=== PATIENT | male | born 1935 | race Caucasian/White ===

== ENCOUNTER 2018-12-04 23:10 | Inpatient (IN) ==
--- NOTE | 2018-12-04 23:14 | Emergency Department Note ---
Disposition Clinical Impression: Weakness, Frequent falls Disposition: Admitted As Inpatient Condition: Fair Time of Disposition: 23:28 ( will admit) Fall HPI - General Chief Complaint: ED Fall Stated Complaint: FALL Time Seen by Provider: 12/04/18 23:14 Source: EMS Mode of arrival: EMS Limitations: no limitations Nursing Notes Reviewed: Yes Vital Signs Reviewed: Yes - History of Present Illness HPI Narrative: Is 83-year-old male who presents to the emergency department via EMS after sustaining a fall at home. According to the EMS crew patient has been laying down on the floor most of the morning. He reports that he is been having complaints of generalized weakness and no chest pain no shortness of breath. Patient's apparently had been outside trying to track down cars, and is not able to take care of the patient. Patient has history of congestive heart failure, but denies chest pain or shortness of breath. 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 Constitutional: Reports: other (Positive abrasion to the left temporal area) Musculoskeletal: Reports: joint swelling, arthralgia, other (Abrasion/skin tear noted to the right elbow.) Physical Exam - General Limitations: no limitations General appearance: alert, in no apparent distress - Head Head exam: other - Expanded Head Exam Head exam physicial: Present: abrasion 1 - abrasion noted - Eye Eye exam: Present: normal appearance, PERRL, EOMI - Expanded Eye Exam Pupils: Left: reactive - ENT ENT exam: normal exam, normal oropharynx, mucous membranes moist - Expanded ENT Exam External ear exam: Present: normal external inspection Mouth exam: Present: normal external inspection Teeth exam: Present: normal inspection Throat exam: Present: normal inspection - Neck Neck exam: Present: normal inspection, full ROM, trachea midline - Chest Chest inspection: Present: normal inspection, symmetric chest wall rise - Respiratory Respiratory exam: Present: normal lung sounds bilaterally - Cardiovascular Cardiovascular exam: Present: regular rate, normal rhythm, normal heart sounds - Abdominal Exam Abdominal exam: Present: soft, Non-Tender. Absent: tenderness, distention, guar ding, rebound, rigidity - Extremities Exam Extremities exam: Present: normal inspection, full ROM. Absent: tenderness, pedal edema - Expanded Upper Extremity Exam Shoulder exam: Present: normal inspection, full ROM Arm exam: Present: normal inspection, full ROM Elbow exam: Present: normal inspection, full ROM Forearm/Wrist exam: Present: normal inspection, full ROM Hand exam: Present: normal inspection, full ROM Vascular exam: Normal: capillary refill, radial pulse - Expanded Lower Extremity Exam Hip/Pelvis exam: Present: normal inspection, full ROM Upper leg exam: Present: normal inspection, full ROM Knee exam: Present: normal inspection, full ROM Lower leg exam: Present: normal inspection, full ROM Ankle exam: Present: normal inspection, full ROM Foot/toe exam: Present: normal inspection, full ROM Neurovascular/Tendon exam: Absent: motor deficit, sensory deficit, tendon deficit - Back Exam Back exam: Present: normal inspection, full ROM. Absent: tenderness - Neurological Exam Neurological exam: Present: alert, oriented X3 - Expanded Neurological Exam Patient oriented to: Present: person, place, time Coma Scale Eye Opening: Spontaneous Coma Scale Motor Response: Obeys Commands Coma Scale Verbal Response: Oriented Coma Scale Total: 15 - Psychiatric Psychiatric exam: Present: normal affect, normal mood - Skin Skin exam: Present: warm, dry, intact, normal color Course Vital Signs Temperature 99.4 F 12/04/18 23:12 Pulse Rate 118 12/04/18 23:12 Respiratory Rate 20 12/04/18 23:12 Blood Pressure 151/98 12/04/18 23:12 O2 Sat by Pulse Oximetry 92 12/04/18 23:12 Temperature 99.4 F 12/04/18 23:12 Pulse Rate 113 12/05/18 02:21 Respiratory Rate 17 12/05/18 02:21 Blood Pressure 145/96 12/05/18 02:21 O2 Sat by Pulse Oximetry 91 12/05/18 02:21 Oxygen Delivery Oxygen Delivery Room Air Fall - [facility] Narrative Medical decision making narrative: [facility] . i spoke with and he accepted the patient . I have the nurse call back Dr. Henderson after the patient's troponin came back elevated 0.07, he wants to repeat another troponin in 2 hours which we will do. On a repeat CT of the head was ordered and 3 hours. We talked with the [facility] and patient was okayed to be staying here. - Differential Diagnosis Likely: traumatic injury - Lab Data Lab results reviewed: Yes I reviewed the patient's lab results. Result diagrams: 12/04/18 23:43 12/04/18 23:43 Lab Results 12/04/18 12/04/18 12/04/18 Range/Units 23:43 23:43 23:43 WBC 4.5 (4.3-11.1) K/mcL RBC 4.63 (4.19-5.50) M/mcL Hgb 13.8 (12.9-16.9) g/dL Hct 41.1 (37.5-50.1) % MCV 88.8 (83.0-100.0) fL MCH 29.8 (28.0-33.3) pg MCHC 33.6 (31.6-35.5) g/dL RDW 15.1 H (11.5-14.5) % Plt Count 135 L (140-400) K/mcL MPV 9.6 (9.4-12.4) fL Immature Gran % 0.2 (0-4) % Seg Neutrophils % 79.0 % Lymphocytes % 7.4 % Monocytes % 13.0 % Eosinophils % 0.0 % Basophils % 0.4 % Neutrophils # 3.5 (1.6-8.9) K/mcL Lymphocytes # 0.3 L (0.6-4.6) K/mcL Monocytes # 0.6 (0.0-1.3) K/mcL Eosinophils # 0.0 (0.0-0.6) K/mcL Basophils # 0.0 (0.0-0.2) K/mcL Sodium 135 L (136-145) mEq/L Potassium 4.2 (3.5-5.1) mEq/L Chloride 99 (98-107) mEq/L Carbon Dioxide 26 (23-29) mEq/L BUN 24 H (8-23) mg/dL Creatinine 1.15 (0.70-1.30) mg/dL Est GFR ( Amer) > 60 (> 60) Est GFR (Non-Af Amer) > 60 (> 60) BUN/Creatinine Ratio 21 (6-26) Glucose 188 H (70-105) mg/dL Calculated Osmolality 289 (280-300) Calcium 9.7 (8.6-10.3) mg/dL Total Bilirubin 0.4 (0.3-1.0) mg/dL AST 44 H (13-39) Units/L ALT 28 (7-52) Units/L Alkaline Phosphatase 112 H (34-104) Units/L Creatine Kinase (30-223) Units/L Troponin I 0.07 H* (< 0.04) ng/mL B-Natriuretic Peptide 220 H (Less than 100) pg/mL Serum Total Protein 7.6 (6.4-8.9) g/dL Albumin 4.1 (3.5-5.7) g/dL Globulin 3.5 (2.4-3.5) g/dL Albumin/Globulin Ratio 1.2 (1.1-2.2) Urine Color (Yellow) Urine Clarity (Clear) Urine pH (5.0-8.0) pH Units Ur Specific [place] (1.010-1.025) Urine Protein (Neg-Trace) mg/dL Urine Glucose (UA) (Normal) mg/dL Urine Ketones (Negative) mg/dL Urine Blood (Negative) Urine Nitrite (Negative) Urine Bilirubin (Negative) Urine Urobilinogen (Normal) mg/dL Ur Leukocyte Esterase (Negative) Urine Microscopic RBC (0-3) per hpf Urine Microscopic WBC (0-3) per hpf Ur Squamous Epith Cells (None-Few) per lpf Urine Bacteria (None-Few) per hpf Hyaline Casts (None-Few) per lpf Granular Casts (None Seen) per lpf WBC Casts (None Seen) per lpf Urine Mucus (Few) 12/04/18 12/05/18 12/05/18 Range/Units 23:43 00:19 01:46 WBC (4.3-11.1) K/mcL RBC (4.19-5.50) M/mcL Hgb (12.9-16.9) g/dL Hct (37.5-50.1) % MCV (83.0-100.0) fL MCH (28.0-33.3) pg MCHC (31.6-35.5) g/dL RDW (11.5-14.5) % Plt Count (140-400) K/mcL MPV (9.4-12.4) fL Immature Gran % (0-4) % Seg Neutrophils % % Lymphocytes % % Monocytes % % Eosinophils % % Basophils % % Neutrophils # (1.6-8.9) K/mcL Lymphocytes # (0.6-4.6) K/mcL Monocytes # (0.0-1.3) K/mcL Eosinophils # (0.0-0.6) K/mcL Basophils # (0.0-0.2) K/mcL Sodium (136-145) mEq/L Potassium (3.5-5.1) mEq/L Chloride (98-107) mEq/L Carbon Dioxide (23-29) mEq/L BUN (8-23) mg/dL Creatinine (0.70-1.30) mg/dL Est GFR ( Amer) (> 60) Est GFR (Non-Af Amer) (> 60) BUN/Creatinine Ratio (6-26) Glucose (70-105) mg/dL Calculated Osmolality (280-300) Calcium (8.6-10.3) mg/dL Total Bilirubin (0.3-1.0) mg/dL AST (13-39) Units/L ALT (7-52) Units/L Alkaline Phosphatase (34-104) Units/L Creatine Kinase 1687 H (30-223) Units/L Troponin I 0.09 H* (< 0.04) ng/mL B-Natriuretic Peptide (Less than 100) pg/mL Serum Total Protein (6.4-8.9) g/dL Albumin (3.5-5.7) g/dL Globulin (2.4-3.5) g/dL Albumin/Globulin Ratio (1.1-2.2) Urine Color Yellow (Yellow) Urine Clarity Slightly Cloudy A (Clear) Urine pH 6.0 (5.0-8.0) pH Units Ur Specific [place] 1.025 (1.010-1.025) Urine Protein >=300 H (Neg-Trace) mg/dL Urine Glucose (UA) Normal (Normal) mg/dL Urine Ketones Negative (Negative) mg/dL Urine Blood Large H (Negative) Urine Nitrite Negative (Negative) Urine Bilirubin Negative (Negative) Urine Urobilinogen Normal (Normal) mg/dL Ur Leukocyte Esterase Negative (Negative) Urine Microscopic RBC 5-15 H (0-3) per hpf Urine Microscopic WBC 0-3 (0-3) per hpf Ur Squamous Epith Cells Few (None-Few) per lpf Urine Bacteria Moderate H (None-Few) per hpf Hyaline Casts Few (None-Few) per lpf Granular Casts Moderate H (None Seen) per lpf WBC Casts Few H (None Seen) per lpf Urine Mucus Moderate H (Few) - Radiology Data Radiology results reviewed: Yes I reviewed the patient's radiology results. CT of head without contrast per radiology reading shows a possible meningioma versus calcification versus a small punctate bleed. This is not vertigo patient has struck his head. We will repeat his CT scan of the head and approximately 3 hours if there are no changes I think patient is safe to be admitted here. X-ray of left elbow, and chest showed no acute process. - EKG Data EKG attestation: Yes I reviewed and interpreted this EKG. EKG results narrative: EKG shows a right bundle branch block pattern, and sinus tach rate of 118 EKG shows normal: sinus rhythm Rate: tachycardia Rhythm: NSR, other (rbbb) [place]/QRS: normal
[2018-12-04] MEDS ORDERED: 0.9 % Sodium Chloride 500 ML IVC ONE (23:25)
[2018-12-04] MEDS ORDERED: Naloxone 0.4 MG/ML INJ IVP PRN (23:32)
[2018-12-04 23:52] LABS: Basophils % 0.4 %; Hematocrit 41.1 % (37.5-50.1); Hemoglobin 13.8 g/dL (12.9-16.9); Immature Granulocytes % 0.2 % (0-4); Lymphocytes # 0.3 K/mcL (0.6-4.6); Lymphocytes % 7.4 %; Mean Corpuscular HGB Conc 33.6 g/dL (31.6-35.5); Mean Corpuscular Hemoglobin 29.8 pg (28.0-33.3); Mean Corpuscular Volume 88.8 fL (83.0-100.0); Mean Platelet Volume 9.6 fL (9.4-12.4); Monocytes # 0.6 K/mcL (0.0-1.3); Neutrophils # 3.5 K/mcL (1.6-8.9); Platelet Count 135 K/mcL (140-400); Red Blood Count 4.63 M/mcL (4.19-5.50); Red Cell Distribution Width 15.1 % (11.5-14.5); White Blood Count 4.5 K/mcL (4.3-11.1)
[2018-12-05 00:21] LABS: Alanine Aminotransferase 28 Units/L (7-52); Albumin 4.1 g/dL (3.5-5.7); Albumin/Globulin Ratio 1.2 (1.1-2.2); Alkaline Phosphatase 112 Units/L (34-104); Aspartate Amino Transferase 44 Units/L (13-39); BUN/Creatinine Ratio 21 (6-26); Bilirubin,Total 0.4 mg/dL (0.3-1.0); Blood Urea Nitrogen 24 mg/dL (8-23); Calcium 9.7 mg/dL (8.6-10.3); Carbon Dioxide 26 mEq/L (23-29); Chloride 99 mEq/L (98-107); Globulin 3.5 g/dL (2.4-3.5); Glucose 188 mg/dL (70-105); Osmolality,Calculated 289 (280-300); Potassium 4.2 mEq/L (3.5-5.1); Sodium 135 mEq/L (136-145); Total Protein 7.6 g/dL (6.4-8.9); Troponin I 0.07 ng/mL (< 0.04); eGFR For African Americans > 60 (> 60); eGFR For Non-African Americans > 60 (> 60)
[2018-12-05 00:25] LABS: Bilirubin,Urine Negative (Negative); Blood,Urine Large (Negative); Clarity,Urine Slightly Cloudy (Clear); Color,Urine Yellow (Yellow); Glucose,Urine (UA) Normal (Normal); Ketones,Urine Negative (Negative); Leukocyte Esterase,Urine Negative (Negative); Nitrite,Urine Negative (Negative); Protein,Urine >=300 mg/dL (Neg-Trace); Specific Gravity,Urine 1.025 (1.010-1.025); Urobilinogen,Urine Normal (Normal)
[2018-12-05 00:34] LABS: Hyaline Casts,Urine Few per lpf (None-Few)
[2018-12-05 00:36] LABS: Bacteria,Urine Moderate per hpf (None-Few); Granular Casts,Urine Moderate per lpf (None Seen); Mucus,Urine Moderate (Few)
[2018-12-05 00:37] LABS: WBC,Urine 0-3 per hpf (0-3); White Blood Cell Casts,Urine Few per lpf (None Seen)
[2018-12-05 00:39] LABS: Squamous Epithelial Cell,Urine Few per lpf (None-Few)
[2018-12-05] MEDS ORDERED: Naloxone 0.4 MG/ML INJ IVP PRN (02:29)
[2018-12-05] MEDS ORDERED: *HR* Metoprolol 5 MG/5 ML VIAL IVP ONE (08:05)
--- NOTE | 2018-12-05 12:08 | Internal Med History&Physical ---
Date of Encounter: 12/05/18 Time of Encounter: 11:30 Assessment and Plan (1) Frequent falls Current visit: Yes Status: Acute PT and OT evaluations will be done. Orthostatic vital signs will be checked. (2) Atrial fibrillation Current visit: Yes Status: Chronic Continue Coumadin and monitor PT/INR. Qualifiers: Atrial fibrillation type: paroxysmal Qualified Code(s): I48.0 - Paroxysmal atrial fibrillation (3) Hypertension Current visit: Yes Status: Chronic He reports taking metoprolol and lisinopril at home. Metoprolol will be continued and blood pressure monitored. Orthostatic vital signs will be checked. Qualifiers: Hypertension type: essential hypertension Qualified Code(s): I10 - Essenti al (primary) hypertension (4) Heart failure Current visit: Yes Status: Chronic Continue metoprolol and monitor. Qualifiers: Heart failure type: unspecified Heart failure chronicity: unspecified Qualified Code(s): I50.9 - Heart failure, unspecified (5) Gout Current visit: Yes Status: Chronic Uric acid level will be checked in a.m. Continue allopurinol. Qualifiers: Gout site: unspecified site Gout etiology: unspecified cause Chronicity: unspecified Qualified Code(s): M10.9 - Gout, unspecified (6) Seizures Current visit: Yes Status: Acute Type unknown. Phenobarbital level will be checked. (7) DM type 2 (diabetes mellitus, type 2) Current visit: Yes Status: Chronic Hemoglobin A1c will be checked. Qualifiers: Diabetes mellitus skilled nursing insulin use: without keno terminal operator use Diabetes mellitus complication status: without complication Qualified Code(s): E11.9 - Type 2 diabetes mellitus without complications Internal Medicine - H&P: HPI Chief complaint: Fall and weakness Admitted From: Emergency Dept Plans for Post Hospital Care: Home History of present illness: Mr. Treadwell is a 83 year old male who came to emergency room after he experienced a fall at home after arising from a chair. He denies loss of consciousness. He was unable to get off the floor by himself or with the minimal help his could offer. After several hours of lying on the floor EMS was called and he was brought to emergency room. He was evaluated and admitted to [facility] for ongoing care needs. He states he has fallen twice in the past 2 months. He typically uses a walker for ambulation. He denies syncope or near-syncope. Neurologic history is pertinent for seizures history but he states he has not had a seizure in several years and uses phenobarbital for AED. Past Med Surg Social Fam HX - Past Medical History Medical history: CHF, diabetes Psychiatric history: no psych history - Social History Smoking Status: Former smoker Smokeless Tobacco Status: No Alcohol use: rarely Drug use: none Internal Medicine - H&P: Meds Allergy/AdvReac Type Severity Reaction Status Date / Time shrimp Allergy Nausea Verified 12/05/18 01:04 All Systems PM: A 10-system review of systems was performed and is negative for pertinent findings except as documented above in the HPI. Review of systems: Gen.: He states his weight has been stable for several months Cardiovascular: Reports history of hypertension CHF and atrial fibrillation. He denies PR DVT or pulmonary embolus. Respiratory: He smoked from approximately age [age] up to 3 packs per day. He denies known chronic lung disease and does not use home oxygen. GI: He denies disorders of his liver gallbladder or exocrine pancreas : He denies hematuria dysuria or kidney stones Neurologic: As per history of present illness Endocrine: He reports he was diagnosed with DM 2 approximately 2012. He has hyperlipidemia but denies thyroid disease Hematology/oncology: He denies blood disorders cancers or anemia Psychiatric: He denies anxiety depression or other mental health issues [place] skeletal: He has DJD and history of gout. He denies other bone joint or muscle disorders. - Constitutional Vitals: Temp Pulse Resp BP Pulse Ox 98.8 F 120 20 141/94 93 12/05/18 11:07 12/05/18 11:07 12/05/18 11:07 12/05/18 11:07 12/05/18 11:07 Exam: Gen.: He is a well-developed well-nourished male lying in bed who appears slightly groggy but in no acute distress. He arouses and answers questions with reasonable answers. HEENT: Head is atraumatic and normal cephalic. Eyes: EOMI. There is no scleral icterus. Mouth: Mucosa is moist. Neck: Supple and nontender. There is no thyromegaly or adenopathy noted. Heart: Regular without murmurs gallops or ectopics. Rate is approximately 120/m Lungs: No wheezes or crackles are heard. He has diminished breath sounds diffusely. Abdomen: Soft and nontender. No masses or guarding are noted. Extremities: He has petechiae and chronic venous stasis pigmentation changes of his lower legs. There is trace pitting edema bilaterally. Dorsalis pedis and posterior tibial pulses are trace palpable. Neurologic: Mental status: He is talkative and a good historian. Cranial nerves: Smile is symmetric. Forehead wrinkles bilaterally. Tongue protrudes midline. EOMI. Motor: There is no pronator drift. Cerebellar: Finger to nose is intact bilaterally. Skin: Warm and dry Internal Med - H&P Results - Labs CBC & Chem 7: 12/04/18 23:43 12/04/18 23:43 Labs: Short CBC 12/04/18 Range/Units 23:43 WBC 4.5 (4.3-11.1) K/mcL Hgb 13.8 (12.9-16.9) g/dL Hct 41.1 (37.5-50.1) % Plt Count 135 L (140-400) K/mcL Neutrophils # 3.5 (1.6-8.9) K/mcL BMP 12/04/18 23:43 Sodium 135 L Potassium 4.2 Chloride 99 Carbon Dioxide 26 BUN 24 H Creatinine 1.15 Glucose 188 H Calcium 9.7 Cardiac Enzymes 12/04/18 12/05/18 Range/Units 23:43 01:46 Troponin I 0.07 H* 0.09 H* (< 0.04) ng/mL Liver Function 12/04/18 Range/Units 23:43 Total Bilirubin 0.4 (0.3-1.0) mg/dL AST 44 H (13-39) Units/L ALT 28 (7-52) Units/L Alkaline Phosphatase 112 H (34-104) Units/L Albumin 4.1 (3.5-5.7) g/dL Urine 12/05/18 Range/Units 00:19 Urine Color Yellow (Yellow) Urine Clarity Slightly Cloudy A (Clear) Urine pH 6.0 (5.0-8.0) pH Units Ur Specific [place] 1.025 (1.010-1.025) Urine Protein >=300 H (Neg-Trace) mg/dL Urine Glucose (UA) Normal (Normal) mg/dL - Impressions ITS Impressions Chest X-Ray 12/04/18 23:15 IMPRESSION: Asymmetric elevation of the left hemidiaphragm. Bibasilar atelectasis. Otherwise unremarkable chest. D/ / Benjamin Huizar MD / Benjamin Huizar MD Interpreting Provider: Benjamin Huizar MD Elbow X-Ray 12/04/18 23:15 IMPRESSION: No acute osseous or soft tissue abnormality. D/ / Missael Naranjo / Missael Naranjo Interpreting Provider: Missael Naranjo Head CT 12/04/18 23:15 IMPRESSION: 1. The tiny density along the right side of the falx could represent a punctate hemorrhage though a calcification or possibly a tiny meningioma are felt to be more likely. If the patient has prior outside studies comparison would be beneficial. 2. Small vessel chronic ischemic changes without definite evidence for acute ischemia. Critical results were called by Dr. Jamie Jones MD to Sandra Ramírez on 12/04/2018 at 23:57. D/ / Jamie Jones MD / Jamie Jones MD Interpreting Provider: Jamie Jones MD Head CT 12/05/18 03:05 IMPRESSION: No appreciable change in the small high attenuation along the right side of the falx. D/ / Jamie Jones MD / Jamie Jones MD Interpreting Provider: Jamie Jones MD
[2018-12-05] MEDS: 0.45 % Sodium Chloride w/KCl 20 MEQ/1,000 ML MLS IVC SCH ×2 (12:34→22:14)
[2018-12-06 04:42] LABS: Hematocrit 41.1 % (37.5-50.1); Mean Corpuscular HGB Conc 34.1 g/dL (31.6-35.5); Mean Corpuscular Volume 88.2 fL (83.0-100.0); Mean Platelet Volume 9.9 fL (9.4-12.4); Red Blood Count 4.66 M/mcL (4.19-5.50); Red Cell Distribution Width 15.1 % (11.5-14.5); White Blood Count 3.7 K/mcL (4.3-11.1)
[2018-12-06 04:47] LABS: Platelet Count 96 K/mcL (140-400)
[2018-12-06 04:52] LABS: INR 1.6; Prothrombin Time 18.2 Seconds (9.4-12.1)
[2018-12-06 05:03] LABS: BUN/Creatinine Ratio 20 (6-26); Blood Urea Nitrogen 19 mg/dL (8-23); Calcium 8.9 mg/dL (8.6-10.3); Carbon Dioxide 24 mEq/L (23-29); Chloride 101 mEq/L (98-107); Glucose 137 mg/dL (70-105); Osmolality,Calculated 280 (280-300); Sodium 133 mEq/L (136-145); Uric Acid 6.1 mg/dL (2.3-7.6); eGFR For African Americans > 60 (> 60); eGFR For Non-African Americans > 60 (> 60)
[2018-12-06 05:24] LABS: Eosinophils # 0.1 K/mcL (0.0-0.6); Lymphocytes # 0.9 K/mcL (0.6-4.6); Monocytes # 0.4 K/mcL (0.0-1.3); Neutrophils # 2.3 K/mcL (1.6-8.9)
[2018-12-06 05:25] LABS: Platelet Estimate Decreased (Normal); Reactive Lymphocytes Present (Not Present)
[2018-12-06] MEDS: 0.45 % Sodium Chloride w/KCl 20 MEQ/1,000 ML MLS IVC SCH (07:36)
[2018-12-06 08:58] LABS: Estimated Average Glucose 174 mg/dl
[2018-12-06] MEDS: Lisinopril 20 MG TABLET PO SCH (11:28)
--- NOTE | 2018-12-06 18:46 | Internal Med Progress Note ---
Date of Encounter: 12/06/18 Time of Encounter: 10:00 - Assessment and plan (1) Frequent falls Current Visit: Yes Status: Acute Assessment and plan: December 06. Continue PT and OT intervention. (2) Atrial fibrillation Current Visit: Yes Status: Chronic Assessment and plan: December 06. Continue Coumadin, metoprolol, and monitor PT/INR. Qualifiers: Atrial fibrillation type: paroxysmal Qualified Code(s): I48.0 - Paroxysmal atrial fibrillation (3) Hypertension Current Visit: Yes Status: Chronic Assessment and plan: December 06. Continue metoprolol and lisinopril. Qualifiers: Hypertension type: essential hypertension Qualified Code(s): I10 - Essential (primary) hypertension (4) Heart failure Current Visit: Yes Status: Chronic Assessment and plan: December 06. Continue metoprolol and lisinopril. Qualifiers: Heart failure type: unspecified Heart failure chronicity: unspecified Qualified Code(s): I50.9 - Heart failure, unspecified (5) Gout Current Visit: Yes Status: Chronic Assessment and plan: December 06. Uric acid level acceptable at 6.1. Continue allopurinol. Qualifiers: Gout site: unspecified site Gout etiology: unspecified cause Chronicity: unspecified Qualified Code(s): M10.9 - Gout, unspecified (6) Seizures Current Visit: Yes Status: Acute Assessment and plan: December 06. Type unknown. Phenobarbital level undetectable. Observe without further Rx. (7) DM type 2 (diabetes mellitus, type 2) Current Visit: Yes Status: Chronic Assessment and plan: December 06. Hemoglobin A1c slightly elevated at 7.7%. Qualifiers: Diabetes mellitus usp insulin use: without rodent exterminator use Diabetes mellitus complication status: without complication Qualified Code(s): E11.9 - Type 2 diabetes mellitus without complications - Subjective Interval history: December 06. He has no new complaints. He feels less dyspneic overall. - Constitutional Vitals: Temp Pulse Resp BP Pulse Ox 100.6 F H 100 20 145/79 95 12/06/18 14:00 12/06/18 14:00 12/06/18 14:00 12/06/18 14:12/06/18 14:00 Exam: He is sitting in a chair at bedside resting And appears in no acute distress. He is more awake and talkative than yesterday. Heart is regular without murmurs gallops or ectopics. Lungs are clear anteriorly. Extremities show no significant edema. I reviewed his medications and lab results. Internal Medicine: Result - Labs CBC & Chem 7: 12/06/18 04:15 12/06/18 04:15 Labs: Short CBC 12/06/18 Range/Units 04:15 WBC 3.7 L (4.3-11.1) K/mcL Hgb 14.0 (12.9-16.9) g/dL Hct 41.1 (37.5-50.1) % Plt Count 96 L (140-400) K/mcL Neutrophils # 2.3 (1.6-8.9) K/mcL BMP 12/06/18 04:15 Sodium 133 L Potassium 4.0 Chloride 101 Carbon Dioxide 24 BUN 19 Creatinine 0.97 Glucose 137 H Calcium 8.9 Cardiac Enzymes 12/06/18 Range/Units 15:21 Troponin I 0.11 H* (< 0.04) ng/mL - ABG Interpretation ABG results: PT/INR, D-dimer PT 18.2 Seconds (9.4-12.1) H 12/06/18 04:15 Consult Discharge Plan - Plan [facility] Care Provider[facility] - 1 week
[2018-12-06] MEDS: Bumetanide 1 MG TABLET PO SCH (19:29)
--- NOTE | 2018-12-06 21:08 | Electrocardiograph Report ---
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
[2018-12-07 05:57] LABS: Basophils % 0.8 %; Eosinophils # 0.1 K/mcL (0.0-0.6); Eosinophils % 1.8 %; Hematocrit 41.1 % (37.5-50.1); Hemoglobin 13.8 g/dL (12.9-16.9); Immature Granulocytes % 0.3 % (0-4); Lymphocytes # 0.9 K/mcL (0.6-4.6); Lymphocytes % 22.2 %; Mean Corpuscular HGB Conc 33.6 g/dL (31.6-35.5); Mean Corpuscular Hemoglobin 29.8 pg (28.0-33.3); Mean Corpuscular Volume 88.8 fL (83.0-100.0); Mean Platelet Volume 10.7 fL (9.4-12.4); Monocytes # 0.8 K/mcL (0.0-1.3); Monocytes % 19.8 %; Red Blood Count 4.63 M/mcL (4.19-5.50); Segmented Neutrophils % 55.1 %; White Blood Count 3.9 K/mcL (4.3-11.1)
[2018-12-07 06:17] LABS: Neutrophils # 2.2 K/mcL (1.6-8.9); Platelet Count 92 K/mcL (140-400)
[2018-12-07 06:21] LABS: BUN/Creatinine Ratio 22 (6-26); Blood Urea Nitrogen 21 mg/dL (8-23); Calcium 8.8 mg/dL (8.6-10.3); Carbon Dioxide 26 mEq/L (23-29); Chloride 101 mEq/L (98-107); Glucose 153 mg/dL (70-105); Osmolality,Calculated 288 (280-300); Potassium 3.8 mEq/L (3.5-5.1); Sodium 136 mEq/L (136-145); eGFR For African Americans > 60 (> 60); eGFR For Non-African Americans > 60 (> 60)
[2018-12-07 07:47] LABS: Platelet Estimate Decreased (Normal)
[2018-12-07] MEDS: Lisinopril 20 MG TABLET PO SCH (07:56)
[2018-12-07] MEDS: Bumetanide 1 MG TABLET PO SCH (07:56)
--- NOTE | 2018-12-07 14:30 | Internal Med Progress Note ---
Date of Encounter: 12/07/18 Time of Encounter: 14:22 - Assessment and plan (1) Frequent falls Current Visit: Yes Status: Acute Assessment and plan: December 06. Continue PT and OT intervention. December 07. Continue therapy intervention. Anticipate discharge to swing bed after acute-care stay completed. (2) Atrial fibrillation Current Visit: Yes Status: Chronic Assessment and plan: December 06. Continue Coumadin, metoprolol, and monitor PT/INR. December 07. INR subtherapeutic at 1.6 yesterday. Start Coumadin 5 mg daily and monitor PT/INR. Qualifiers: Atrial fibrillation type: paroxysmal Qualified Code(s): I48.0 - Paroxysmal atrial fibrillation (3) Hypertension Current Visit: Yes Status: Chronic Assessment and plan: December 06. Continue metoprolol and lisinopril. December 07. Blood pressure and heart rate suboptimally controlled. Continue metoprolol. Increase lisinopril. Qualifiers: Hypertension type: essential hypertension Qualified Code(s): I10 - Essential (primary) hypertension (4) Heart failure Current Visit: Yes Status: Chronic Assessment and plan: December 06. Continue metoprolol and lisinopril. December 07. Continue metoprolol, lisinopril, and Bumex. Qualifiers: Heart failure type: unspecified Heart failure chronicity: unspecified Qualified Code(s): I50.9 - Heart failure, unspecified (5) Gout Current Visit: Yes Status: Chronic Assessment and plan: December 06. Uric acid level acceptable at 6.1. Continue allopurinol. Qualifiers: Gout site: unspecified site Gout etiology: unspecified cause Chronicity: unspecified Qualified Code(s): M10.9 - Gout, unspecified (6) Seizures Current Visit: Yes Status: Acute Assessment and plan: December 06. Type unknown. Phenobarbital level undetectable. Observe without further Rx. (7) DM type 2 (diabetes mellitus, type 2) Current Visit: Yes Status: Chronic Assessment and plan: December 06. Hemoglobin A1c slightly elevated at 7.7%. 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 Continue PT and OT intervention for muscle strengthening, balance, etc. He will benefit from swing bed stay after acute care. Qualifiers: Encounter type: subsequent encounter Qualified Code(s): W19.XXXD - Unspecified fall, subsequent encounter (9) Weakness Current Visit: Yes Status: Acute Assessment and plan: December 07. As above (10) Elevated troponin Current Visit: Yes Status: Acute Assessment and plan: December 07. Suspect troponin leak from heart failure/ AF with RVR. Increase lisinopril and add Lanoxin. Continue metoprolol. - Subjective Interval history: December 06. He has no new complaints. He feels less dyspneic overall. December 07. He has no new complaints. He feels slightly stronger but realizes he is still weak. He feels he would benefit from extended therapy in swing bed. - Constitutional Vitals: Temp Pulse Resp BP Pulse Ox 99.1 F 116 18 150/98 93 12/07/18 06:15 12/07/18 06:15 12/07/18 06:15 12/07/18 06:15 12/07/18 06:15 Exam: He is resting comfortably in bed and appears in no acute distress. His affect is overall cheerful. Extremities show trace edema. Petechiae show no significant change in his lower legs. I reviewed his medications and lab results. Internal Medicine: Result - Labs CBC & Chem 7: 12/07/18 05:00 12/07/18 05:00 Labs: Short CBC 12/07/18 Range/Units 05:00 WBC 3.9 L (4.3-11.1) K/mcL Hgb 13.8 (12.9-16.9) g/dL Hct 41.1 (37.5-50.1) % Plt Count 92 L (140-400) K/mcL Neutrophils # 2.2 (1.6-8.9) K/mcL BMP 12/07/18 05:00 Sodium 136 Potassium 3.8 Chloride 101 Carbon Dioxide 26 BUN 21 Creatinine 0.95 Glucose 153 H Calcium 8.8 Cardiac Enzymes 12/06/18 Range/Units 15:21 Troponin I 0.11 H* (< 0.04) ng/mL - ABG Interpretation ABG results: PT/INR, D-dimer PT 18.2 Seconds (9.4-12.1) H 12/06/18 04:15 Consult Discharge Plan - Plan [facility]errals: [facility]Primary Care Provider[facility] - 1 week
[2018-12-07] MEDS: *HR* Digoxin 0.125 MG TABLET PO SCH (15:02)
[2018-12-07] MEDS: *HR* Warfarin 5 MG TABLET PO SCH (17:11)
[2018-12-08] MEDS: *HR* Digoxin 0.125 MG TABLET PO SCH (10:01)
[2018-12-08] MEDS: Lisinopril 20 MG TABLET PO SCH (10:02)
[2018-12-08] MEDS: Bumetanide 1 MG TABLET PO SCH (10:02)
--- NOTE | 2018-12-08 11:07 | Internal Med Progress Note ---
Date of Encounter: 12/08/18 Time of Encounter: 10:58 - Assessment and plan (1) Frequent falls Current Visit: Yes Status: Acute Assessment and plan: December 06. Continue PT and OT intervention. December 07. Continue therapy intervention. Anticipate discharge to swing bed after acute-care stay completed. December 08. Strength and balance are improved. Continue present Rx. (2) Atrial fibrillation Current Visit: Yes Status: Chronic Assessment and plan: December 06. Continue Coumadin, metoprolol, and monitor PT/INR. December 07. INR subtherapeutic at 1.6 yesterday. Start Coumadin 5 mg daily and monitor PT/INR. Qualifiers: Atrial fibrillation type: paroxysmal Qualified Code(s): I48.0 - Paroxysmal atrial fibrillation (3) Hypertension Current Visit: Yes Status: Chronic Assessment and plan: December 06. Continue metoprolol and lisinopril. December 07. Blood pressure and heart rate suboptimally controlled. Continue metoprolol. Increase lisinopril. Qualifiers: Hypertension type: essential hypertension Qualified Code(s): I10 - Ess ential (primary) hypertension (4) Heart failure Current Visit: Yes Status: Chronic Assessment and plan: December 06. Continue metoprolol and lisinopril. December 07. Continue metoprolol, lisinopril, and Bumex. December 08. Continue present Rx. Recheck labs in 1-2 days Qualifiers: Heart failure type: unspecified Heart failure chronicity: unspecified Qualified Code(s): I50.9 - Heart failure, unspecified (5) Gout Current Visit: Yes Status: Chronic Assessment and plan: December 06. Uric acid level acceptable at 6.1. Continue allopurinol. Qualifiers: Gout site: unspecified site Gout etiology: unspecified cause Chronicity: unspecified Qualified Code(s): M10.9 - Gout, unspecified (6) Seizures Current Visit: Yes Status: Acute Assessment and plan: December 06. Type unknown. Phenobarbital level undetectable. Observe without further Rx. (7) DM type 2 (diabetes mellitus, type 2) Current Visit: Yes Status: Chronic Assessment and plan: December 06. Hemoglobin A1c slightly elevated at 7.7%. 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 As above (9) Elevated troponin Current Visit: Yes Status: Acute Assessment and plan: December 07. Suspect troponin leak from heart failure/ AF with RVR. Increase lisinopril and add Lanoxin. Continue metoprolol. - Subjective Interval history: December 06. He has no new complaints. He feels less dyspneic overall. December 07. He has no new complaints. He feels slightly stronger but realizes he is still weak. He feels he would benefit from extended therapy in swing bed. December 08. He has no new complaints. He feels stronger overall. - Constitutional Vitals: Temp Pulse Resp BP Pulse Ox 98.4 F 115 22 168/95 93 12/08/18 06:16 12/08/18 06:16 12/08/18 06:16 12/08/18 06:16 12/08/18 06:16 Exam: He is resting comfortably in a chair at bedside and appears in no acute distress. Internal Medicine: Result - Labs CBC & Chem 7: 12/07/18 05:00 12/07/18 05:00 - ABG Interpretation ABG results: PT/INR, D-dimer PT 18.2 Seconds (9.4-12.1) H 12/06/18 04:15 Consult Discharge Plan - Plan [facility]errals: [facility] [Primary Care Provider] - 1 week
[2018-12-08] MEDS: *HR* Warfarin 5 MG TABLET PO SCH (16:45)
[2018-12-09] MEDS: *HR* Digoxin 0.125 MG TABLET PO SCH (09:37)
[2018-12-09] MEDS: Bumetanide 1 MG TABLET PO SCH (09:37)
[2018-12-09] MEDS: Lisinopril 20 MG TABLET PO SCH (09:38)
--- NOTE | 2018-12-09 10:00 | Internal Med Progress Note ---
Date of Encounter: 12/09/18 Time of Encounter: 09:52 - Assessment and plan (1) Frequent falls Current Visit: Yes Status: Acute Assessment and plan: December 06. Continue PT and OT intervention. December 07. Continue therapy intervention. Anticipate discharge to swing bed after acute-care stay completed. December 09. Strength and balance are improved. Continue present Rx. (2) Atrial fibrillation Current Visit: Yes Status: Chronic Assessment and plan: December 06. Continue Coumadin, metoprolol, and monitor PT/INR. December 07. INR subtherapeutic at 1.6 yesterday. Start Coumadin 5 mg daily and monitor PT/INR. December 08. Continue Coumadin, Lanoxin and metoprolol. Recheck labs in a.m. Qualifiers: Atrial fibrillation type: paroxysmal Qualified Code(s): I48.0 - Paroxysmal atrial fibrillation (3) Hypertension Current Visit: Yes Status: Chronic Assessment and plan: December 06. Continue metoprolol and lisinopril. December 07. Blood pressure and heart rate suboptimally controlled. Continue metoprolol. Increase lisinopril. December 09. Blood pressure improved. Qualifiers: Hypertension type: essential hypertension Qualified Code(s): I10 - Essential (primary) hypertension (4) Heart failure Current Visit: Yes Status: Chronic Assessment and plan: December 06. Continue metoprolol and lisinopril. December 07. Continue metoprolol, lisinopril, and Bumex. December 08. Continue present Rx. Recheck labs in 1-2 days December 09. Recheck labs in a.m. Qualifiers: Heart failure type: unspecified Heart failure chronicity: unspecified Qualified Code(s): I50.9 - Heart failure, unspecified (5) Gout Current Visit: Yes Status: Chronic Assessment and plan: December 06. Uric acid level acceptable at 6.1. Continue allopurinol. Qualifiers: Gout site: unspecified site Gout etiology: unspecified cause Chronicity: unspecified Qualified Code(s): M10.9 - Gout, unspecified (6) Seizures Current Visit: Yes Status: Acute Assessment and plan: December 06. Type unknown. Phenobarbital level undetectable. Observe without further Rx. (7) DM type 2 (diabetes mellitus, type 2) Current Visit: Yes Status: Chronic Assessment and plan: December 06. Hemoglobin A1c slightly elevated at 7.7%. 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 As above (9) Elevated troponin Current Visit: Yes Status: Acute Assessment and plan: December 07. Suspect troponin leak from heart failure/ AF with RVR. Increase lisinopril and add Lanoxin. Continue metoprolol. - Subjective Interval history: December 06. He has no new complaints. He feels less dyspneic overall. December 07. He has no new complaints. He feels slightly stronger but realizes he is still weak. He feels he would benefit from extended therapy in swing bed. December 08. He has no new complaints. He feels stronger overall. Fito . Has no new complaints. He feels he is making good progress in therapy and feels he will not need swing bed stay - Constitutional Vitals: Temp Pulse Resp BP Pulse Ox 98.1 F 81 16 138/69 95 12/09/18 04:22 12/09/18 04:22 12/09/18 04:22 12/09/18 04:22 12/09/18 04:22 Exam: He is resting comfortably in bed and appears in no acute distress. His affect i s bright and cheerful. Heart is slightly tachycardic errata 108/m. Lungs are clear anteriorly. Extremities show no pitting edema. I reviewed his medications and lab results. Internal Medicine: Result - Labs CBC & Chem 7: 12/07/18 05:00 12/07/18 05:00 - ABG Interpretation ABG results: PT/INR, D-dimer PT 18.2 Seconds (9.4-12.1) H 12/06/18 04:15 Consult Discharge Plan - Plan [facility]errals: [facility] [Primary Care Provider] - 1 week
[2018-12-09] MEDS: *HR* Warfarin 5 MG TABLET PO SCH (18:57)
[2018-12-10 06:20] VITALS: BP 148/91
[2018-12-10 06:21] LABS: Basophils % 0.8 %; Eosinophils # 0.3 K/mcL (0.0-0.6); Eosinophils % 5.7 %; Hematocrit 38.1 % (37.5-50.1); Hemoglobin 12.9 g/dL (12.9-16.9); Immature Granulocytes % 0.4 % (0-4); Lymphocytes # 1.9 K/mcL (0.6-4.6); Lymphocytes % 35.3 %; Mean Corpuscular HGB Conc 33.9 g/dL (31.6-35.5); Mean Corpuscular Hemoglobin 29.9 pg (28.0-33.3); Mean Corpuscular Volume 88.4 fL (83.0-100.0); Mean Platelet Volume 10.5 fL (9.4-12.4); Monocytes # 0.6 K/mcL (0.0-1.3); Monocytes % 10.9 %; Neutrophils # 2.5 K/mcL (1.6-8.9); Platelet Count 141 K/mcL (140-400); Red Blood Count 4.31 M/mcL (4.19-5.50); Red Cell Distribution Width 14.6 % (11.5-14.5); Segmented Neutrophils % 46.9 %; White Blood Count 5.3 K/mcL (4.3-11.1)
[2018-12-10 06:31] LABS: INR 1.3; Prothrombin Time 14.7 Seconds (9.4-12.1)
[2018-12-10 07:07] LABS: Platelet Estimate Normal (Normal)
[2018-12-10 07:31] LABS: Troponin I < 0.03 ng/mL (< 0.04)
[2018-12-10] MEDS: *HR* Digoxin 0.125 MG TABLET PO SCH (08:01)
[2018-12-10] MEDS: Bumetanide 1 MG TABLET PO SCH (08:01)
[2018-12-10 08:03] LABS: BUN/Creatinine Ratio 24 (6-26); Blood Urea Nitrogen 20 mg/dL (8-23); Carbon Dioxide 27 mEq/L (23-29); Chloride 106 mEq/L (98-107); Digoxin 0.4 ng/mL (0.8-2.0); Glucose 168 mg/dL (70-105); Magnesium 2.1 mg/dL (1.6-2.6); Osmolality,Calculated 298 (280-300); Potassium 3.7 mEq/L (3.5-5.1); Sodium 141 mEq/L (136-145); eGFR For African Americans > 60 (> 60); eGFR For Non-African Americans > 60 (> 60)
[2018-12-10] MEDS: Lisinopril 20 MG TABLET PO SCH (08:03)
--- NOTE | 2018-12-10 09:21 | Discharge Summary ---
Date of Encounter: 12/10/18 Time of Encounter: 09:14 - Discharge Diagnosis (1) Frequent falls Priority: Primary Status: Acute (2) Atrial fibrillation Priority: Secondary Status: Chronic Qualifiers: Atrial fibrillation type: paroxysmal Qualified Code(s): I48.0 - Paroxysmal atrial fibrillation (3) Hypertension Priority: Secondary Status: Chronic Qualifiers: Hypertension type: essential hypertension Qualified Code(s): I10 - Essential (primary) hypertension (4) Heart failure Priority: Secondary Status: Chronic Qualifiers: Heart failure type: unspecified Heart failure chronicity: unspecified Qualified Code(s): I50.9 - Heart failure, unspecified (5) Gout Priority: Secondary Status: Chronic Qualifiers: Gout site: unspecified site Gout etiology: unspecified cause Chronicity: unspecified Qualified Code(s): M10.9 - Gout, unspecified (6) Seizures Priority: Secondary Status: Acute (7) DM type 2 (diabetes mellitus, type 2) Priority: Secondary Status: Chronic Qualifiers: Diabetes mellitus detention insulin use: without 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 Treadwell is a 83 year old male who came to emergency room after he experienced a fall at home after arising from a chair. He denies loss of consciousness. He was unable to get off the floor by himself or with the minimal help his could offer. After several hours of lying on the floor EMS was called and he was brought to emergency room. He was evaluated and admitted to [facility] for ongoing care needs. Initial orders were written by the emergency room physician. I saw him on December 05 and performed a history and physical. PT and OT evaluations with ongoing intervention were done. He made satisfactory progress. It was felt he would benefit from ongoing therapy in swing bed. Orthostatic vital signs showed insignificant blood pressure drop from lying to standing. Metoprolol and lisinopril were continued with satisfactory blood pressure control overall. BN peptide remained stable and dyspnea improved on metoprolol, lisinopril, Bumex, and Lanoxin. Lanoxin and metoprolol were given and rapid ventricular response to atrial fibrillation resolved. Coumadin was continued with INR monitored. Troponin decreased to < 0.03 by day of discharge to swing bed. Hemoglobin A1c returned slightly elevated at 7.7%. He will be started on metformin. On December 10 arrangements were complete for him to be discharged to swing bed for ongoing care needs. - Time Spent with Patient Total time spent providing and/or coordinating discharge services: - Discharge Medications Prescriptions: New Acetaminophen 650 mg PO Q6H PRN 30 Days capsule PRN Reason: Pain Bumetanide [Bumex] 0.5 mg PO DAILY tablet Warfarin [Coumadin] 6 mg PO DAILY@1800 tablet Digoxin [Lanoxin] 0.25 mg PO DAILY tablet Metoprolol [Lopressor] 100 mg PO BID tablet Lisinopril [Zestril] 40 mg PO DAILY tablet metFORMIN [Glucophage] 500 mg PO BIDWM 30 Days tablet Continued Brimonidine 0.2% [Alphagan] 1 drop BOTH EYES BID Latanoprost/Pf [Latanoprost 0.005% Eye Drop] 1 drop HS Albuterol Sulfate [Proair Hfa] 180 mcg IH Q4H PRN PRN Reason: Shortness Of Breath Simethicone [Gas-X] 160 mg PO QID Acetaminophen [Extra Strength Non-Aspirin] 500 mg PO Q4H PRN PRN Reason: Pain Nitroglycerin [Nitrostat] 0.4 mg SL PRN Calcium 500 + Vit D Caplet 1 each PO DAILY Home Medications: Acetaminophen [Extra Strength Non-Aspirin] 500 mg PO Q4H PRN 12/06/18 [History] Albuterol Sulfate [Proair Hfa] 180 mcg IH Q4H PRN 12/06/18 [History] Brimonidine 0.2% [Alphagan] 1 drop BOTH EYES BID 12/06/18 [History] Calcium 500 + Vit D Caplet 1 each PO DAILY 12/06/18 [History] Latanoprost/Pf [Latanoprost 0.005% Eye Drop] 1 drop HS 12/06/18 [History] Nitroglycerin [Nitrostat] 0.4 mg SL PRN 12/06/18 [History] Simethicone [Gas-X] 160 mg PO QID 12/06/18 [History] Acetaminophen 650 mg PO Q6H PRN 30 Days capsule 12/10/18 [Rx] Bumetanide [Bumex] 0.5 mg PO DAILY tablet 12/10/18 [Rx] Digoxin [Lanoxin] 0.25 mg PO DAILY tablet 12/10/18 [Rx] Lisinopril [Zestril] 40 mg PO DAILY tablet 12/10/18 [Rx] Metoprolol [Lopressor] 100 mg PO BID tablet 12/10/18 [Rx] Warfarin [Coumadin] 6 mg PO DAILY@1800 tablet 12/10/18 [Rx] metFORMIN [Glucophage] 500 mg PO BIDWM 30 Days tablet 12/10/18 [Rx] Allergies/Adverse Reactions: Allergy/AdvReac Type Severity Reaction Status Date / Time shrimp Allergy Nausea Verified 12/05/18 01:04 Date of admission: 12/07/18 14:43 [facility]: [facility] Consults: 12/05/18 12:00 Consult to Occupational Therapy [CONS] Routine Comment: Evaluate, develop and implement POC Reason for Consult: Falls, weakness Does patient have active BEDREST order?: No Is patient medically & hemodynamically stable?: Yes Patient assessed for mobility or mobilized this visit?: Yes Consult to Physical Therapy [CONS] Routine Comment: Evaluate, develop and implement POC Reason for Consult: Falls, weakness Does patient have active BEDREST order?: No Is patient medically & hemodynamically stable?: Yes Patient assessed for mobility or mobilized this visit?: Yes - Constitutional Vitals: Temp Pulse Resp BP Pulse Ox 97.8 F 82 18 148/91 95 12/10/18 06:18 12/10/18 06:18 12/10/18 06:18 12/10/18 06:18 12/10/18 06:18 - Patient Status Disposition: Transfer Hospital Swing Bed Condition: Fair - Discharge Instructions - Diet and Activity Activity: as per physical therapy Diet: diabetic diet, low salt diet
== END 2018-12-10 10:41 | disposition other institution (70) | DRG 605 ==
LOC: INPPIK 23:10 → EMEROOPIK 23:10 → INPPIK 12-05 02:55
PROVIDERS: ADMIT Internal Medicine; ATTEND Internal Medicine

== ENCOUNTER 2018-12-10 11:26 | Inpatient (IN) ==
[2018-12-10] MEDS ORDERED: ACETAMINOPHEN 650 MG PO PRN (11:41)
[2018-12-10] MEDS ORDERED: Nitroglycerin 0.4 MG TAB.SUBL SL PRN (11:45)
[2018-12-10] MEDS ORDERED: Simethicone 80 MG TAB.CHEW PO SCH (13:00)
[2018-12-10] MEDS ORDERED: Simethicone 80 MG TAB.CHEW PO PRN (16:53)
[2018-12-10] MEDS: *HR* Metformin 500 MG TABLET PO SCH (16:59)
[2018-12-10] MEDS: *HR* Warfarin 3 MG TABLET PO SCH (17:00)
[2018-12-10] MEDS: Latanoprost 2.5 ML BOTTLE BOTH EYES SCH (21:30)
--- NOTE | 2018-12-11 08:36 | Internal Med Progress Note ---
Date of Encounter: 12/11/18 Time of Encounter: 08:28 - Assessment and plan (1) Weakness Current Visit: No Status: Acute Assessment and plan: December 11. Continue PT and OT intervention. (2) Frequent falls Current Visit: No Status: Acute Assessment and plan: December 11. As above (3) Atrial fibrillation Current Visit: No Status: Chronic Assessment and plan: December 11. Continue Coumadin and monitor PT/INR Qualifiers: Atrial fibrillation type: paroxysmal Qualified Code(s): I48.0 - Paroxysmal atrial fibrillation (4) Hypertension Current Visit: No Status: Chronic Assessment and plan: December 11. Continue metoprolol and lisinopril Qualifiers: Hypertension type: essential hypertension Qualified Code(s): I10 - Essential (primary) hypertension (5) Seizures Current Visit: No Status: Acute Assessment and plan: December 11. Type unknown. Phenobarbital was discontinued when level was undetectable and no history of seizures for years. Continue to observe. (6) DM type 2 (diabetes mellitus, type 2) Current Visit: No Status: Chronic Assessment and plan: December 11. Hemoglobin A1c slightly elevated at 7.7%. Continue metformin. Qualifiers: Diabetes mellitus residential insulin use: without residential use Diabetes mellitus complication status: without complication Qualified Code(s): E11.9 - Type 2 diabetes mellitus without complications - Subjective Interval history: December 11. He was hospitalized at [facility] acute-care December 04- after presenting with weakness and fall at home. He had PT and OT intervention and improved but it was felt he would benefit from ongoing therapy in swing bed. He had AF with RVR and responded to metoprolol and Lanoxin for rate control. Coumadin was continued. He was started on metformin for hemoglobin A1c 7.7%. He has no new complaints today. - Constitutional Vitals: Temp Pulse Resp BP Pulse Ox 97.7 F 76 16 172/98 95 12/11/18 06:33 12/11/18 06:33 12/11/18 06:33 12/11/18 06:33 12/11/18 06:33 Exam: He is sitting in a chair at bedside resting comfortably and appears in no acute distress. His affect is bright and cheerful. I reviewed his medications and lab results. Consult Discharge Plan - Plan [facility]errals: [facility] [Primary Care Provider] - 1 week
[2018-12-11] MEDS: *HR* Digoxin 0.25 MG TABLET PO SCH (10:01)
[2018-12-11] MEDS: Lisinopril 20 MG TABLET PO SCH (10:01)
[2018-12-11] MEDS: Cholecalciferol (D-3) 1,000 UNIT TABLET PO SCH (10:01)
[2018-12-11] MEDS: Bumetanide 1 MG TABLET PO SCH (10:02)
[2018-12-11] MEDS: *HR* Metformin 500 MG TABLET PO SCH ×2 (10:02→17:29)
[2018-12-11] MEDS: *HR* Warfarin 3 MG TABLET PO SCH (17:29)
[2018-12-11] MEDS: Latanoprost 2.5 ML BOTTLE BOTH EYES SCH (20:46)
[2018-12-12] MEDS: *HR* Metformin 500 MG TABLET PO SCH ×2 (09:07→17:07)
[2018-12-12] MEDS: Bumetanide 1 MG TABLET PO SCH (09:08)
[2018-12-12] MEDS: Cholecalciferol (D-3) 1,000 UNIT TABLET PO SCH (09:08)
[2018-12-12] MEDS: Lisinopril 20 MG TABLET PO SCH (09:08)
[2018-12-12] MEDS: *HR* Digoxin 0.25 MG TABLET PO SCH (09:08)
[2018-12-12] MEDS: *HR* Warfarin 3 MG TABLET PO SCH (17:07)
[2018-12-12] MEDS: Latanoprost 2.5 ML BOTTLE BOTH EYES SCH (20:01)
[2018-12-13] MEDS: Bumetanide 1 MG TABLET PO SCH (07:48)
[2018-12-13] MEDS: *HR* Metformin 500 MG TABLET PO SCH ×2 (07:48→17:15)
[2018-12-13] MEDS: Cholecalciferol (D-3) 1,000 UNIT TABLET PO SCH (07:49)
[2018-12-13] MEDS: Lisinopril 20 MG TABLET PO SCH (07:49)
[2018-12-13] MEDS: *HR* Digoxin 0.25 MG TABLET PO SCH (07:49)
[2018-12-13] MEDS: *HR* Warfarin 3 MG TABLET PO SCH (17:15)
--- NOTE | 2018-12-13 20:31 | Internal Med Progress Note ---
Date of Encounter: 12/13/18 Time of Encounter: 20:20 - Assessment and plan (1) Weakness Current Visit: No Status: Acute Assessment and plan: December 11. Continue PT and OT intervention. (2) Frequent falls Current Visit: No Status: Acute Assessment and plan: December 11. As above (3) Atrial fibrillation Current Visit: No Status: Chronic Assessment and plan: December 11. Continue Coumadin and monitor PT/INR Qualifiers: Atrial fibrillation type: paroxysmal Qualified Code(s): I48.0 - Paroxysmal atrial fibrillation (4) Hypertension Current Visit: No Status: Chronic Assessment and plan: December 11. Continue metoprolol and lisinopril Qualifiers: Hypertension type: essential hypertension Qualified Code(s): I10 - Essential (primary) hypertension (5) Seizures Current Visit: No Status: Acute Assessment and plan: December 11. Type unknown. Phenobarbital was discontinued when level was undetectable and no history of seizures for years. Continue to observe. (6) DM type 2 (diabetes mellitus, type 2) Current Visit: No Status: Chronic Assessment and plan: December 11. Hemoglobin A1c slightly elevated at 7.7%. Continue metformin. December 13. Blood sugars remain slightly elevated. Increase metformin. Qualifiers: Diabetes mellitus assisted insulin use: without metal storage worker use Diabetes mellitus complication status: without complication Qualified Code(s): E11.9 - Type 2 diabetes mellitus without complications (7) Glaucoma Current Visit: Yes Status: Acute Assessment and plan: December 13. Continue Xalatan but hold brimonidine until seen by the eye physician due to significant eye redness and discomfort. Qualifiers: Glaucoma type: unspecified Laterality: bilateral Qualified Code(s): H40.9 - Unspecified glaucoma - Subjective Interval history: December 11. He was hospitalized at [facility] acute-care December 04- after presenting with weakness and fall at home. He had PT and OT intervention and improved but it was felt he would benefit from ongoing therapy in swing bed. He had AF with RVR and responded to metoprolol and Lanoxin for rate control. Coumadin was continued. He was started on metformin for hemoglobin A1c 7.7%. He has no new complaints today. December 13. He has no new complaints. Eyedrops were restarted and he feels his eyes are burning. - Constitutional Vitals: Temp Pulse Resp BP Pulse Ox 98.3 F 84 16 170/87 95 12/13/18 18:32 12/13/18 18:32 12/13/18 18:32 12/13/18 18:32 12/13/18 18:32 Exam: He is resting comfortably in bed and appears in no acute distress. He has conjunctival erythema bilaterally. He has no edema of his legs. I reviewed his medications and lab results. Consult Discharge Plan - Plan Referrals: [facility] [Primary Care Provider] - 1 week
[2018-12-13] MEDS: Latanoprost 2.5 ML BOTTLE BOTH EYES SCH (20:42)
[2018-12-14 06:41] LABS: INR 1.3; Prothrombin Time 15.3 Seconds (9.4-12.1)
[2018-12-14] MEDS: *HR* Metformin 500 MG TABLET PO SCH ×2 (08:18→17:43)
[2018-12-14] MEDS: Bumetanide 1 MG TABLET PO SCH (08:19)
[2018-12-14] MEDS: Cholecalciferol (D-3) 1,000 UNIT TABLET PO SCH (08:19)
[2018-12-14] MEDS: Lisinopril 20 MG TABLET PO SCH (08:20)
[2018-12-14] MEDS: *HR* Digoxin 0.25 MG TABLET PO SCH (08:25)
[2018-12-14] MEDS: *HR* Warfarin 3 MG TABLET PO SCH (18:11)
[2018-12-14] MEDS: Latanoprost 2.5 ML BOTTLE BOTH EYES SCH (20:05)
[2018-12-15] MEDS: Lisinopril 20 MG TABLET PO SCH (07:52)
[2018-12-15] MEDS: *HR* Digoxin 0.25 MG TABLET PO SCH (07:53)
[2018-12-15] MEDS: Bumetanide 1 MG TABLET PO SCH (07:53)
[2018-12-15] MEDS: *HR* Metformin 500 MG TABLET PO SCH ×2 (07:53→17:00)
[2018-12-15] MEDS: Cholecalciferol (D-3) 1,000 UNIT TABLET PO SCH (07:55)
[2018-12-15] MEDS: *HR* Warfarin 3 MG TABLET PO SCH (17:00)
[2018-12-15] MEDS: Latanoprost 2.5 ML BOTTLE BOTH EYES SCH (20:06)
[2018-12-16 08:13] LABS: INR 1.4; Prothrombin Time 16.2 Seconds (9.4-12.1)
[2018-12-16] MEDS: Lisinopril 20 MG TABLET PO SCH (09:37)
[2018-12-16] MEDS: *HR* Digoxin 0.25 MG TABLET PO SCH (09:37)
[2018-12-16] MEDS: Bumetanide 1 MG TABLET PO SCH (09:38)
[2018-12-16] MEDS: *HR* Metformin 500 MG TABLET PO SCH ×2 (09:39→16:26)
[2018-12-16] MEDS: Cholecalciferol (D-3) 1,000 UNIT TABLET PO SCH (09:39)
[2018-12-16] MEDS: *HR* Warfarin 3 MG TABLET PO SCH (17:17)
[2018-12-16] MEDS: Latanoprost 2.5 ML BOTTLE BOTH EYES SCH (20:02)
[2018-12-17 08:05] VITALS: BP 171/80
[2018-12-17] MEDS: *HR* Digoxin 0.25 MG TABLET PO SCH (08:07)
[2018-12-17] MEDS: *HR* Metformin 500 MG TABLET PO SCH (08:07)
[2018-12-17] MEDS: Bumetanide 1 MG TABLET PO SCH (08:07)
[2018-12-17] MEDS: Cholecalciferol (D-3) 1,000 UNIT TABLET PO SCH (08:08)
[2018-12-17] MEDS: Lisinopril 20 MG TABLET PO SCH (08:08)
--- NOTE | 2018-12-17 09:39 | Discharge Summary ---
Date of Encounter: 12/17/18 Time of Encounter: 09:25 - Discharge Diagnosis (1) Weakness Priority: Primary Status: Acute (2) Frequent falls Priority: Secondary Status: Acute (3) Atrial fibrillation Priority: Secondary Status: Chronic Qualifiers: Atrial fibrillation type: paroxysmal Qualified Code(s): I48.0 - Paroxysmal atrial fibrillation (4) Hypertension Priority: Secondary Status: Chronic Qualifiers: Hypertension type: essential hypertension Qualified Code(s): I10 - Essential (primary) hypertension (5) Seizures Priority: Secondary Status: Acute (6) DM type 2 (diabetes mellitus, type 2) Priority: Secondary Status: Chronic Qualifiers: 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 Treadwell is a 83 year old male who was hospitalized at [facility] acute-care December 04- after presenting with weakness and fall at home. He had PT and OT intervention and improved but it was felt he would benefit from ongoing therapy in swing bed. He continued with physical therapy and occupational therapy and made satisfactory improvement. On December 17 he felt stable for discharge home. Home health services will be ordered to continue therapy intervention. Coumadin dose will be increased to 7.5 mg daily at discharge his PCP can monitor INR. Blood pressure remained satisfactorily controlled on metoprolol and lisinopril. These will be continued at discharge. Ventricular response to atrial fibrillation remained controlled on Lanoxin and metoprolol. These will be continued at discharge. Phenobarbital was discontinued during acute care stay since his blood level was undetectable at < 1 mcg/ml. He had no seizures and will remain off this medication at discharge. Blood sugars were satisfactorily controlled on metformin 1000 mg twice a day. He will follow with his PCP at [facility] within 1 week. - Time Spent with Patient Total time spent providing and/or coordinating discharge services: - Discharge Medications Prescriptions: New metFORMIN [Glucophage] 1,000 mg PO BIDWM #120 tablet Digoxin [Lanoxin] 0.25 mg PO DAILY #30 tablet Metoprolol Tartrate 100 mg PO BID #60 tablet Continued Brimonidine 0.2% [Alphagan] 1 drop BOTH EYES BID Latanoprost/Pf [Latanoprost 0.005% Eye Drop] 1 drop HS Albuterol Sulfate [Proair Hfa] 180 mcg IH Q4H PRN PRN Reason: Shortness Of Breath Simethicone [Gas-X] 160 mg PO QID Acetaminophen [Extra Strength Non-Aspirin] 500 mg PO Q4H PRN PRN Reason: Pain Nitroglycerin [Nitrostat] 0.4 mg SL PRN Calcium 500 + Vit D Caplet 1 each PO DAILY Acetaminophen 650 mg PO Q6H PRN 30 Days capsule PRN Reason: Pain Bumetanide [Bumex] 0.5 mg PO DAILY #15 tablet Lisinopril [Zestril] 40 mg PO DAILY #60 tablet Changed Warfarin [Coumadin] 7.5 mg PO DAILY@1800 #45 tablet Discontinued Digoxin [Lanoxin] 0.25 mg PO DAILY tablet Metoprolol [Lopressor] 100 mg PO BID tablet metFORMIN [Glucophage] 500 mg PO BIDWM 30 Days tablet Home Medications: Acetaminophen [Extra Strength Non-Aspirin] 500 mg PO Q4H PRN 12/06/18 [History] Albuterol Sulfate [Proair Hfa] 180 mcg IH Q4H PRN 12/06/18 [History] Brimonidine 0.2% [Alphagan] 1 drop BOTH EYES BID 12/06/18 [History] Calcium 500 + Vit D Caplet 1 each PO DAILY 12/06/18 [History] Latanoprost/Pf [Latanoprost 0.005% Eye Drop] 1 drop HS 12/06/18 [History] Nitroglycerin [Nitrostat] 0.4 mg SL PRN 12/06/18 [History] Simethicone [Gas-X] 160 mg PO QID 12/06/18 [History] Acetaminophen 650 mg PO Q6H PRN 30 Days capsule 12/10/18 [Rx] Bumetanide [Bumex] 0.5 mg PO DAILY #15 tablet 12/17/18 [Rx] Digoxin [Lanoxin] 0.25 mg PO DAILY #30 tablet 12/17/18 [Rx] Lisinopril [Zestril] 40 mg PO DAILY #60 tablet 12/17/18 [Rx] Metoprolol Tartrate 100 mg PO BID #60 tablet 12/17/18 [Rx] Warfarin [Coumadin] 7.5 mg PO DAILY@1800 #45 tablet 12/17/18 [Rx] metFORMIN [Glucophage] 1,000 mg PO BIDWM #120 tablet 12/17/18 [Rx] Allergies/Adverse Reactions: Allergy/AdvReac Type Severity Reaction Status Date / Time shrimp Allergy Nausea Verified 12/05/18 01:04 Date of admission: 12/10/18 11:46 [facility] care physician: [facility] Consults: 12/10/18 11:38 Consult to Occupational Therapy [CONS] Routine Comment: Evaluate, develop, and implement plan of care Reason for Consult: Evaluate, develop, and implement plan of care Does patient have active BEDREST order?: No Is patient medically & hemodynamically stable?: Yes Patient assessed for mobility or mobilized this visit?: No Consult to Physical Therapy [CONS] Routine Comment: Evaluate, develop, and implement plan of care Reason for Consult: Evaluate, develop, and implement plan of care Does patient have active BEDREST order?: No Is patient medically & hemodynamically stable?: Yes Patient assessed for mobility or mobilized this visit?: No Consult to Supervisor Offset Plate Preparation [CONS] Routine Reason for SW Consult: Discharge Planning - Constitutional Vitals: Temp Pulse Resp BP Pulse Ox 97.5 F L 96 20 171/80 95 12/17/18 08:03 12/17/18 08:03 12/17/18 08:03 12/17/18 08:03 12/17/18 08:03 - Patient Status Disposition: Home Health Service - Discharge Instructions [facility] Provider[facility] - 1 week - Diet and Activity Activity: as per physical therapy Diet: diabetic diet
--- NOTE | 2018-12-17 09:47 | Physician Discharge Referral ---
Home Health/Hosp Referral Info Transfer to: Home Health Attending Provider: Santiago Provider in Charge Post Discharge: PCP (ELMO) - Diagnosis (1) Weakness Priority: Primary Status: Acute (2) Frequent falls Priority: Secondary Status: Acute (3) Atrial fibrillation Priority: Secondary Status: Chronic (4) Hypertension Priority: Secondary Status: Chronic (5) Seizures Priority: Secondary Status: Chronic (6) DM type 2 (diabetes mellitus, type 2) Priority: Secondary Status: Chronic (7) Glaucoma Priority: Secondary Status: Chronic - Respiratory Orders Smoking Cessation: Smoking cessation has been advised. For more information, call the [place] Tobacco Quit Line at 8-523-BNUN-NOW. - Diet/Nutrition Diet/Nutrition Orders: No Concentrated Sweets - Activity Activity Orders: Walker - Services Needed Following services are medically necessary services: Nursing, Home Health Aide, Physical Therapy, Occupational Therapy - Transfer Medications Prescriptions: Bumetanide [Bumex] 0.5 mg PO DAILY #15 tablet Warfarin [Coumadin] 7.5 mg PO DAILY@1800 #45 tablet metFORMIN [Glucophage] 1,000 mg PO BIDWM #120 tablet Digoxin [Lanoxin] 0.25 mg PO DAILY #30 tablet Metoprolol Tartrate 100 mg PO BID #60 tablet Lisinopril [Zestril] 40 mg PO DAILY #60 tablet Home Medications: Acetaminophen [Extra Strength Non-Aspirin] 500 mg PO Q4H PRN 12/06/18 [History] Albuterol Sulfate [Proair Hfa] 180 mcg IH Q4H PRN 12/06/18 [History] Brimonidine 0.2% [Alphagan] 1 drop BOTH EYES BID 12/06/18 [History] Calcium 500 + Vit D Caplet 1 each PO DAILY 12/06/18 [History] Latanoprost/Pf [Latanoprost 0.005% Eye Drop] 1 drop HS 12/06/18 [History] Nitroglycerin [Nitrostat] 0.4 mg SL PRN 12/06/18 [History] Simethicone [Gas-X] 160 mg PO QID 12/06/18 [History] Acetaminophen 650 mg PO Q6H PRN 30 Days capsule 12/10/18 [Rx] Bumetanide [Bumex] 0.5 mg PO DAILY #15 tablet 12/17/18 [Rx] Digoxin [Lanoxin] 0.25 mg PO DAILY #30 tablet 12/17/18 [Rx] Lisinopril [Zestril] 40 mg PO DAILY #60 tablet 12/17/18 [Rx] Metoprolol Tartrate 100 mg PO BID #60 tablet 12/17/18 [Rx] Warfarin [Coumadin] 7.5 mg PO DAILY@1800 #45 tablet 12/17/18 [Rx] metFORMIN [Glucophage] 1,000 mg PO BIDWM #120 tablet 12/17/18 [Rx] Allergies/Adverse Reactions: Allergy/AdvReac Type Severity Reaction Status Date / Time shrimp Allergy Nausea Verified 12/05/18 01:04 Certification: Further, I certify that my clinical findings support that this patient is homebound (i.e. absences from home require considerable and taxing effort and are for medical reasons or mu-ism services or infrequently or short duration when for other reasons) because: Homebound Reason: Leaving home requires considerable and taxing effort due to condition (Impaired walking ability, frequent falls) Attestation: My signature below is to certify that this patient is under my care and that I, or nurse practitioner, or a physician's assistant in nursing working with me, has a [id number] encounter with this patient.
== END 2018-12-17 11:59 | disposition home health service (06) | DRG 946 ==
LOC: INPPIK 11:46
PROVIDERS: ADMIT Internal Medicine; ATTEND Internal Medicine